=== PATIENT | female | born 1990 | race Caucasian/White ===

== ENCOUNTER → 2016-08-20 | Outpatient (CLI) | payer OTHER ==
[~2016-08-20] MED LIST: ACET-749 PO; ALBUAER INH; BCPILLS PO; CEPH500C PO; CLIN300C10 PO; PENI-82 PO; SULF800T23 PO; VNTHFA/IN INH
== END | disposition home or self-care (01) ==
LOC: C.PAPS 10:00
PROVIDERS: ATTEND Physician Assistant
DX: Z01.419 Encounter for gynecological examination (general) (routine) without abnormal findings (principal)

== ENCOUNTER → 2016-08-21 | Outpatient (CLI) | payer OTHER ==
[2016-08-24 01:24] LABS: CHLAMYDIA TRACH RNA*** NOT DETECTED (NOT DETECTED); GC (NEIS GONORRHOEAE)RNA** NOT DETECTED (NOT DETECTED)
== END | disposition home or self-care (01) ==
LOC: C.LABSPEC 17:55
PROVIDERS: ATTEND Physician Assistant
DX: Z01.419 Encounter for gynecological examination (general) (routine) without abnormal findings (principal)

== ENCOUNTER 2016-09-22 09:20 | Emergency (ER) | payer OTHER ==
[~2016-09-22] VITALS: Ht 161.8 cm; Wt 122.8 kg
[~2016-09-22 09:20] MED LIST changes: -BCPILLS PO; -CEPH500C PO; -SULF800T23 PO; -VNTHFA/IN INH
[2016-09-22 09:24] VITALS: TEMP 36.7; Ht 161.8 cm; Wt 122.8 kg
[2016-09-22] MEDS ORDERED: CEFTRIAXONE SOD INJ 1 GM ADDVIAL IV STA (10:09)
--- NOTE | 2016-09-22 10:10 | EMERGENCY ROOM VISIT NOTE ---
History Report prepared by Laron: Baldo Alfred Under the Supervision of: Dr. Zeb Davis M.D. First contact with patient: 09:59 Chief Complaint: ABDOMINAL PAIN Stated Complaint: RED SPOT STOMACH, CHEST PAIN, NAUSEA Nursing Triage Summary: pt reports abdominal pain with NV that started 1 day ago ,today noted a red spot on L side of abdomen that had drainage from it today History of Present Illness The patient is a 25 year old female who presents to the Emergency Room with complaints of left sided abdominal pain that began 1 day. This pain is secondary to a red sore located in this area. She rates her current pain a 7/10 in severity. She notes that there has been drainage in this area as well. She described it as being white and pus-like. She is also experiencing some chest pressure, nausea, and vomiting. She denies any recent injury or fever. The patient was at work yesterday when she experienced these symptoms. Her pain only lasts for a few seconds. She notes that she has been stressed about her personal relationship. Source of History: patient Onset: 1 day ago Position: abdomen (LLQ) Symptom Intensity: 7/10 Quality: sharp Timing: worsening Associated Symptoms: + chest pain, + nausea, + vomiting, No fevers Review of Systems See HPI for pertinent positives & negatives. A total of 10 systems reviewed and were otherwise negative. Past Medical & Surgical Medical Problems: (1) arrest of dilation (2) Asthma (3) HTN (hypertension) Surgical Problems: (1) Hx of cholecystectomy (2) Hx of tonsillectomy (3) Hx of wisdom tooth extraction Old medical records were reviewed. Nurse's notes were reviewed and I agree with. Family History FH: gallbladder disease Hypertension Social History Smoking Status: Never Smoker Smokeless Tobacco Use: No Alcohol Use: none Drug Use: none Marital Status: in relationship Housing Status: lives with family, lives with significant other Occupation Status: employed Current/Historical Medications Scheduled Control Pills ( Control Pills), 1 TAB PO DAILY Cephalexin Monohydrate (Keflex), 500 MG PO QID Sulfa/Trimethoprim (Bactrim Ds 800MG/160MG), 1 TAB PO BID Scheduled PRN Albuterol Hfa (Ventolin Hfa), 2 PUFFS INH Q4H PRN for SOB/Wheezing Allergies Coded Allergies: Acetaminophen (Verified Allergy, Unknown, TYLENOL RAPID RELEASE - SWELLING , 09/22/16) Brompheniramine (Verified Allergy, Unknown, SWELLING, 09/22/16) Phenylpropanolamine (Verified Allergy, Unknown, SWELLING, 09/22/16) Physical Exam Vital Signs Date Time Temp Pulse Resp B/P Pulse Ox O2 Delivery O2 Flow Rate FiO2 09/22/16 12:31 83 18 130/85 100 Room Air 09/22/16 11:09 74 18 135/84 98 Room Air 09/22/16 09:24 36.7 85 18 148/88 100 Room Air Physical Exam General: Non- ill appearing young female. Well developed well nourished in no acute distress, breathing comfortably on room air. Normal speech HEENT: Normal cephalic atraumatic. Pupils are equal round and reactive to light. Sclerae anicteric. Extraocular movements are intact. Oropharynx is pink with moist mucous membranes. No swelling of the mouth lips or tongue. Neck: Supple with a midline trachea. No meningeal signs or stiffness, no JVD or bruits. No Stridor. Chest: Clear to auscultation bilaterally. No wheezes or rhonchi. No increased work of breathing. Heart: regular rate and rhythm. Abdomen: Soft nontender, nondistended without rebound guarding or rigidity. There is an area of cellulitis with a central opening that has clear drainage at this point. No pus. Extremities: No cyanosis clubbing or edema. No calf tenderness or assymetry Spine/Back. Non tender to palpation. No CVA tenderness Skin: Good turgor without rashes. Neurologic exam: Cranial nerves two through 12 are intact. Motor and sensation are intact and symmetrical throughout. Medical Decision & Procedures ER Provider Diagnostic Interpretation: Radiology results as stated below per my review and radiologist interpretation: CHEST ONE VIEW PORTABLE CLINICAL HISTORY: Chest pain and nausea. COMPARISON STUDY: No previous studies for comparison. FINDINGS: Lung volumes are at the lower limits of normal. There is no pneumothorax or pleural effusion. Cardiac size is normal. Mediastinal contours are normal. There is no evidence of pulmonary edema. IMPRESSION: No acute cardiopulmonary findings. Electronically signed by: Curtsi Jefferson M.D. 09/22/2016 10:24 AM Dictated Date/Time: 09/22/2016 10:[address] ANGIOGRAPHY OF THE CHEST, PULMONARY EMBOLUS PROTOCOL CLINICAL HISTORY: Chest pain, shortness of breath and elevated d-dimer. COMPARISON STUDY: Chest radiograph September 22, 2016. TECHNIQUE: Following IV administration of 120 mL of Optiray-320, helical axial images of the chest were obtained utilizing the pulmonary embolus protocol. Maximal intensity projections and sagittal and coronal reformats were viewed on an independent 3D workstation. IV contrast was administered without complication. CT DOSE: 569.39 mGy.cm FINDINGS: No pulmonary emboli are identified. The size of the heart is normal. There is no pericardial effusion. There is no evidence of thoracic aortic dissection. No enlarged axillary, mediastinal or hilar lymph nodes are present. There is a 4 mm calcified granuloma within the left upper lobe. There is no pneumothorax or pleural effusion. Bony thorax and upper abdomen are unremarkable. IMPRESSION: 1. No pulmonary emboli identified. 2. No acute intrathoracic findings. Electronically signed by: Curtis Jefferson M.D. 09/22/2016 12:14 PM Dictated Date/Time: 09/22/2016 12:06 PM Laboratory Results 09/22/16 10:29 Red Blood Count 5.52, Mean Corpuscular Volume 79.3, Mean Corpuscular Hemoglobin 24.8, Mean Corpuscular Hemoglobin Concent 31.3, Mean Platelet Volume 9.3, Neutrophils (%) (Auto) 70.7, Lymphocytes (%) (Auto) 21.0, Monocytes (%) (Auto) 6.7, Eosinophils (%) (Auto) 1.1, Basophils (%) (Auto) 0.3, Neutrophils # (Auto) 9.03, Lymphocytes # (Auto) 2.69, Monocytes # (Auto) 0.85, Eosinophils # (Auto) 0.14, Basophils # (Auto) 0.04 09/22/16 10:29 Test 09/22/16 10:29 09/22/16 10:35 White Blood Count 12.78 K/uL (4.8-10.8) Red Blood Count 5.52 M/uL (4.2-5.4) Hemoglobin 13.7 g/dL (12.0-16.0) Hematocrit 43.8 % (37-47) Mean Corpuscular Volume 79.3 fL (80-100) Mean Corpuscular Hemoglobin 24.8 pg (25-34) Mean Corpuscular Hemoglobin Concent 31.3 g/dl (32-36) Platelet Count 424 K/uL (130-400) Mean Platelet Volume 9.3 fL (7.4-10.4) Neutrophils (%) (Auto) 70.7 % Lymphocytes (%) (Auto) 21.0 % Monocytes (%) (Auto) 6.7 % Eosinophils (%) (Auto) 1.1 % Basophils (%) (Auto) 0.3 % Neutrophils # (Auto) 9.03 K/uL (1.4-6.5) Lymphocytes # (Auto) 2.69 K/uL (1.2-3.4) Monocytes # (Auto) 0.85 K/uL (0.11-0.59) Eosinophils # (Auto) 0.14 K/uL (0-0.5) Basophils # (Auto) 0.04 K/uL (0-0.2) RDW Standard Deviation 45.4 fL (36.4-46.3) RDW Coefficient of Variation 15.6 % (11.5-14.5) Immature Granulocyte % (Auto) 0.2 % Immature Granulocyte # (Auto) 0.03 K/uL (0.00-0.02) Anion Gap 6.0 mmol/L (3-11) Est Creatinine Clear Calc Drug Dose 148.2 ml/min Estimated GFR () 128.1 Estimated GFR (Non- 110.6 BUN/Creatinine Ratio 15.4 (10-20) Calcium Level 9.6 mg/dl (8.5-10.1) Human Chorionic Gonadotropin, Qual NEG (NEG) Bedside D-Dimer > 450 ng/mlFEU (0-450) Bedside Troponin I 0.010 ng/ml (0-0.045) Laboratory studies as stated above per my review. Medications Administered Medications (Trade) Dose Ordered Sig/Abigail Route Start Time Stop Time Status Last Admin Dose Admin Ceftriaxone Sodium (Rocephin Inj) 1 gm NOW STAT IV 09/22/16 10:09 09/22/16 10:11 DC 09/22/16 11:13 1 GM Trimethoprim/ Sulfamethoxazole (Septra Ds 800/ 160MG Tab) 1 tab NOW STAT PO 09/22/16 12:28 09/22/16 12:29 DC 09/22/16 12:42 1 TAB ECG Indication: abdominal pain, chest pain Rate (beats per minute): 71 Rhythm: normal sinus Findings: no acute ischemic change, no ectopy Comparison ECG Date: no prior available Change: Second ECG showed: NSR 75, no ischemic changes or ectopy. No change from first. ED Course 958: Past medical records reviewed. The patient was evaluated in room C3, and a complete history and physical examination were performed. 1009: Ordered Rocephin Inj 1 mg IV 1114: I informed the patient that her D-dimer is elevated. I discussed with her the risks and benefits of receiving a CT scan. She wants to proceed. 1228: Ordered Trimethoprim/Sulfamethoxazole 1 tab PO 1231: Upon reevaluation, the patient is resting. I discussed the results and treatment plan with her. She verbalized agreement of the treatment plan. The patient was discharged home. Medical Decision Differentials include cellulitis, abscess, and electrolyte or metabolic abnormality. Medication Reconciliation: I attest that I have personally reviewed the patients current medication list. Blood pressure Screening: Patient was found to have normal blood pressure on screening and does not require follow-up. This patient comes in as described above. She was placed in room C3. She has redness in her left lower abdomen she has what appears to be an abscess that drained. There is no purulence right now is open. She does have a cellulitis as well she's also had some intermittent chest pain as well that sounds atypical for cardiac. IV access established, EKG was obtained. She has nothing to suggest acute coronary syndrome or arrhythmia. Chest x-ray was unremarkable. Her d-dimer is mildly elevated and in light of this , I did do a chest CT after discussing the pros and cons with the mother. She did receive IV Rocephin while she was here as well and will be sent home with a prescription for Keflex as well as Bactrim. She will return in 1 day or follow- up with her doctor on Friday for recheck of the wound. I did outline it with pen and she should return sooner for redness, pus, fever, drainage. EKG does not suggest any definite cardiac disease. A second EKG and there is no significant change when compared to EKG #1. She does have some nonspecific T- wave abnormalities but her symptoms are very atypical for cardiac disease with sharp pain lasting only a few seconds. She will use Bactrim and Keflex and return if worsening symptoms or any new problems Impression Primary Impression: Cellulitis Additional Impressions: Abdominal wall abscess Chest pain Scribe Attestation The scribe's documentation has been prepared under my direction and personally reviewed by me in its entirety. I confirm that the note above accurately reflects all work, treatment, procedures, and medical decision making performed by me. Departure Information Dispostion Home / Self-Care Prescriptions Cephalexin Monohydrate (Keflex) 500 Mg Cap 500 MG PO QID for 10 Days, #40 CAP Prov: Zeb Davis M.D. 09/22/16 Sulfa/Trimethoprim (Bactrim Ds 800MG/160MG) Tab 1 TAB PO BID, #20 TAB Prov: Zeb Davis M.D. 09/22/16 Referrals No Doctor, Assigned (PCP) Forms HOME CARE DOCUMENTATION FORM, IMPORTANT VISIT INFORMATION Patient Instructions [facility] Additional Instructions Rest. Warm compresses Drink plenty of fluids. Use Bactrim double strength twice a day for 10 days. Use Keflex 500 mg 4 times a day for 10 days For pain, Use Ibuprofen 400 mg every 6 hours, take with food Return if: Increasing pain or redness or warmth, pus drainage, shortness of breath, further chest or worsening chest pain, any new problems or concerns Follow-up with your doctor in 1-2 days for recheck or return here Problem Qualifiers
--- NOTE | 2016-09-22 10:26 | DIAGNOSTIC IMAGING REPORT ---
CHEST ONE VIEW PORTABLE CLINICAL HISTORY: Chest pain and nausea. COMPARISON STUDY: No previous studies for comparison. FINDINGS: Lung volumes are at the lower limits of normal. There is no pneumothorax or pleural effusion. Cardiac size is normal. Mediastinal contours are normal. There is no evidence of pulmonary edema. IMPRESSION: No acute cardiopulmonary findings. Electronically signed by: Curtis Jefferson M.D. 09/22/2016 10:24 AM Dictated Date/Time: 09/22/2016 10:24 AM
[2016-09-22] MEDS ORDERED: BCPILLS PO (10:39)
[2016-09-22] MEDS ORDERED: VNTHFA/IN INH (10:39)
[2016-09-22 11:01] LABS: BASO % 0.3 %; BASO ABS # 0.04 K/uL (0-0.2); COMPLETE YES; EOS % 1.1 %; HEMATOCRIT 43.8 % (37-47); IG% 0.2 %; LYMPH ABS # 2.69 K/uL (1.2-3.4); MEAN CELL VOLUME 79.3 fL (80-100); MEAN CORPUSCULAR HEMOGLOBIN 24.8 pg (25-34); MEAN CORPUSCULAR HGB CONC 31.3 g/dl (32-36); MEAN PLATELET VOLUME 9.3 fL (7.4-10.4); MONO % 6.7 %; NEUT % 70.7 %; PLATELET COUNT 424 K/uL (130-400); RED BLOOD COUNT 5.52 M/uL (4.2-5.4); WHITE BLOOD COUNT 12.78 K/uL (4.8-10.8)
[2016-09-22 11:05] LABS: PREG INTERNAL NEGATIVE QC NEG CLEAR BACKGROUND; PREG INTERNAL POSITIVE QC POS CONTROL LINE
[2016-09-22 11:07] LABS: BUN/CREATININE RATIO 15.4 (10-20); CALCIUM 9.6 mg/dl (8.5-10.1); CREATININE 0.76 mg/dl (0.60-1.20); POTASSIUM 3.9 mmol/L (3.5-5.1)
[2016-09-22] MEDS ORDERED: OPTIRAY 320 IV PRN (11:30)
[2016-09-22] MEDS ORDERED: SULF800T23 PO (11:56)
[2016-09-22] MEDS ORDERED: CEPH500C PO (11:56)
--- NOTE | 2016-09-22 12:15 | DIAGNOSTIC IMAGING REPORT ---
CT ANGIOGRAPHY OF THE CHEST, PULMONARY EMBOLUS PROTOCOL CLINICAL HISTORY: Chest pain, shortness of breath and elevated d-dimer. COMPARISON STUDY: Chest radiograph September 22, 2016. TECHNIQUE: Following IV administration of 120 mL of Optiray-320, helical axial images of the chest were obtained utilizing the pulmonary embolus protocol. Maximal intensity projections and sagittal and coronal reformats were viewed on an independent 3D workstation. IV contrast was administered without complication. CT DOSE: 569.39 mGy.cm FINDINGS: No pulmonary emboli are identified. The size of the heart is normal. There is no pericardial effusion. There is no evidence of thoracic aortic dissection. No enlarged axillary, mediastinal or hilar lymph nodes are present. There is a 4 mm calcified granuloma within the left upper lobe. There is no pneumothorax or pleural effusion. Bony thorax and upper abdomen are unremarkable. IMPRESSION: 1. No pulmonary emboli identified. 2. No acute intrathoracic findings. Electronically signed by: Curtis Jefferson M.D. 09/22/2016 12:14 PM Dictated Date/Time: 09/22/2016 12:06 PM
[2016-09-22] MEDS ORDERED: SULFAMETHOXAZOLE/TRIMETHOPRIM DS 800/160MG TAB PO STA (12:28)
[2016-09-22 12:31] VITALS: BP 130/85; PULSE 83; O2SAT 100
--- NOTE | 2016-09-25 13:35 | Pharmacy Progress Note ---
ED Pharmacist Culture FollowUp Date of Service: September 25, 2016. Patient was sent home with a prescription for Bactrim and Keflex. Bactrim should cover the MRSA growing from the patient's wound culture. Keflex will not. Gram positive bacilli isolated in 1 of 2 blood cultures. Growth was first noted ~72 hours after culture was collected. Spoke w Jamil at microbiology lab - bacteria is growing very slowly from the aerobic vial (therefore not Clostridium). Cannot obtain sensitivities on any Gram positive bacilli. May never be able to identify the pathogen definitively , but Jamil suspects it is Corynebacterium. Growth likely represents skin contaminant. Case discussed w Dr. Delgado. Spoke with patient. She notes her symptoms have improved. Denied fever. Noted nausea after eating. Counseled that antibiotics may cause some nausea. Counseled to stop Keflex but continue Bactrim, per Dr. Delgado. Informed that the isolated pathogen was MRSA. Informed of positive blood culture result but noted that it is very likely a contaminant. Counseled to return to ER if patient gets worse or becomes febrile. Patient acknowledged understanding.
== END 2016-09-22 12:45 | disposition home or self-care (01) ==
LOC: C.EDB 09:21 → C.EDC 12:45
DX: L03.311 Cellulitis of abdominal wall (principal); L02.211 Cutaneous abscess of abdominal wall; R07.9 Chest pain, unspecified; R11.2 Nausea with vomiting, unspecified; J45.909 Unspecified asthma, uncomplicated; I10 Essential (primary) hypertension; Z79.3 Long term (current) use of hormonal contraceptives